=== PATIENT | female | born 1935 | race Caucasian/White ===

== ENCOUNTER 2017-08-03 17:13 | Emergency (ER) | payer MEDICARE, BC ==
[~2017-08-03] VITALS: Ht 167.6 cm; Wt 78.6 kg
[2017-08-03 17:15] VITALS: TEMP 98.6
[2017-08-03] MEDS ORDERED: BYSTOLIC20 MG PO (17:59)
[2017-08-03] MEDS ORDERED: ULORIC40 MG PO (17:59)
[2017-08-03] MEDS ORDERED: CELEXA40 MG PO (17:59)
[2017-08-03] MEDS ORDERED: HCTZ 25MG TAB25 MG PO (17:59)
[2017-08-03 18:00] LABS: BASO % 0.4 % (0.0-2.0); EOS # 0.1 (0.0-0.7); EOS % 2.2 % (0-4.0); GRAN # 3.1 (1.4-6.5); GRAN % 61.6 % (42.2-75.2); HEMATOCRIT 40.2 % (37.0-47.0); HEMOGLOBIN 12.9 g/dl (12.5-16.0); LYMPH # 1.4 (1.2-3.4); LYMPH % 27.7 % (20.0-51.0); MEAN CELL VOLUME 89 fl (80.0-100.0); MEAN CORPUSCULAR HEMOGLOBIN 29 pg (27.0-31.0); MEAN CORPUSCULAR HGB CONC 32 g/dl (33.0-37.0); MEAN PLATELET VOLUME 10.7 fl (7.4-10.4); MONO # 0.4 (0.1-0.6); MONO % 7.3 % (1.7-9.3); PLATELET COUNT 150 K/mm3 (130-400); RED BLOOD COUNT 4.51 M/mm3 (4.10-5.30); WHITE BLOOD COUNT 5.1 K/mm3 (4.8-10.8)
[2017-08-03] MEDS ORDERED: LEVOXYL0.112 MG PO (18:00)
[2017-08-03] MEDS ORDERED: LAMICTAL200 MG PO (18:01)
[2017-08-03] MEDS ORDERED: CYTOMEL 5MC5 MCG/TAB PO (18:01)
[2017-08-03] MEDS ORDERED: ASPIRIN E.C. 8181 MG PO (18:02)
[2017-08-03] MEDS ORDERED: KLONOPIN 0.5MG0.5 MG PO (18:02)
[2017-08-03] MEDS ORDERED: ULTRAM 50MG TAB50 MG PO (18:02)
[2017-08-03 18:10] LABS: ADJUSTED CALCIUM 9.5 mg/dL (8.4-10.2); ALANINE AMINOTRANSFERASE 54 U/L (9-52); ALBUMIN 4.6 gm/dL (3.5-5.0); ALKALINE PHOSPHATASE 92 U/L (50-136); ANION GAP 11 mmol/L (7-16); BILIRUBIN,TOTAL 0.6 mg/dL (0.0-1.0); BLOOD UREA NITROGEN 16 mg/dL (7-17); C-REACTIVE PROTEIN 1.9 mg/dL (0.0-0.9); CARBON DIOXIDE 29 mmol/L (22-30); CHLORIDE 102 mmol/L (98-107); CREATININE, serum 0.71 mg/dL (0.52-1.25); GLUCOSE 111 mg/dL (74-106); POTASSIUM 3.3 mmol/L (3.4-5.0); SODIUM 142 mmol/L (137-145); TOTAL PROTEIN 7.9 gm/dL (6.4-8.2)
[2017-08-03 18:19] LABS: TROPONIN-I < 0.012 ng/mL (0.000-0.034)
[2017-08-03] MEDS ORDERED: ATIVAN 0.50.5 MG/TAB PO (18:54)
[2017-08-03 19:10] VITALS: BP 126/71; PULSE 60
== END 2017-08-03 19:30 | disposition home or self-care (01) ==
LOC: COL.ER 17:13
PROVIDERS: Emergency Medicine
DX: I10 Essential (primary) hypertension (principal); R42 Dizziness and giddiness; I25.10 Atherosclerotic heart disease of native coronary artery without angina pectoris; Z79.82 Long term (current) use of aspirin; Z95.1 Presence of aortocoronary bypass graft; Z95.5 Presence of coronary angioplasty implant and graft
CPT/HCPCS: J2060; J2405; J7030

== ENCOUNTER 2019-08-04 12:25 | Outpatient (CLI) | payer MEDICARE, BC ==
[~2019-08-04] VITALS: Ht 167.6 cm; Wt 74.0 kg
[~2019-08-04 12:25] MED LIST: ASPIRIN E.C. 8181 MG PO; ATIVAN 0.50.5 MG/TAB PO; BYSTOLIC20 MG PO; CELEXA40 MG PO; CYTOMEL 5MC5 MCG/TAB PO; HCTZ 25MG TAB25 MG PO; KLONOPIN 0.5MG0.5 MG PO; LAMICTAL200 MG PO; LEVOXYL0.112 MG PO; PROZAC 10MG10 MG PO; RESTASIS MULTI5.5 ML OP; ULORIC40 MG PO; ULTRAM 50MG TAB50 MG PO
[2019-08-04 13:00] VITALS: BP 138/59; PULSE 60; TEMP 98.7
[2019-08-04 13:02] LABS: HEMATOCRIT 42.1 % (37.0-47.0); HEMOGLOBIN 13.2 g/dl (12.5-16.0); MEAN CELL VOLUME 90 fl (80.0-100.0); MEAN CORPUSCULAR HEMOGLOBIN 28 pg (27.0-31.0); MEAN CORPUSCULAR HGB CONC 31 g/dl (33.0-37.0); MEAN PLATELET VOLUME 10.8 fl (7.4-10.4); PLATELET COUNT 116 K/mm3 (130-400); RED BLOOD COUNT 4.69 M/mm3 (4.10-5.30); REDCELL DISTRIBUTION WIDTH-CV 14.3 % (11.5-14.5)
[2019-08-04] MEDS ORDERED: SYNTHROID0.088 MG/T PO (13:05)
[2019-08-04 13:07] LABS: PROTHROMBIN TIME 12.2 SECONDS (9.7-12.8)
[2019-08-04] MEDS ORDERED: SINGULAIR 110 MG/TAB PO (13:08)
[2019-08-04 13:10] LABS: CALCIUM 9.7 mg/dL (8.4-10.2); CREATININE, serum 0.8 (0.52-1.25)
[2019-08-04 14:20] VITALS: BP 146/68; PULSE 60
--- NOTE | 2019-08-04 14:20 | NUR ---
CALIXTO complete and report received from Dallin Leigh RN. Pt resting well.
[2019-08-04 14:35] VITALS: BP 142/72; PULSE 60
[2019-08-04 14:50] VITALS: BP 164/81; PULSE 59
--- NOTE | 2019-08-04 14:55 | NUR ---
Pt has ambulated and kimi PO intake s n/v. PIV removed with catheter intact.
--- NOTE | 2019-08-04 15:15 | NUR ---
Pt discharged per w/c by nurse with son.
== END 2019-08-04 16:24 | disposition home or self-care (01) ==
LOC: COL.RAD 12:25
PROVIDERS: Internal Medicine Cardiovascular Disease
DX: R94.31 Abnormal electrocardiogram [ECG] [EKG] (principal); Z95.0 Presence of cardiac pacemaker
CPT/HCPCS: J2704; J7030

== ENCOUNTER → 2019-10-08 | Outpatient (CLI) | payer MEDICARE, BC ==
[~2019-10-08] MED LIST changes: +SINGULAIR 110 MG/TAB PO; +SYNTHROID0.088 MG/T PO
== END ==
LOC: ZLAB.ENT 16:36 → ZCOL.LAB 16:36
DX: J32.4 Chronic pansinusitis (principal)